=== PATIENT | female | born 1975 | race Caucasian/White ===

== ENCOUNTER 2016-11-17 18:59 | Emergency (ER) | payer MEDICAID ==
[~2016-11-17] VITALS: Ht 152.4 cm; Wt 65.8 kg
[~2016-11-17 18:59] MED LIST: ACET-915 PO
[2016-11-17] MEDS ORDERED: KETOROLAC 30 MG INJ IM STA (19:01)
[2016-11-17 19:15] VITALS: Ht 152.4 cm; Wt 65.8 kg
[2016-11-17] MEDS ORDERED: DIAZEPAM 5 MG/ML SYG IM ONE (19:30)
--- NOTE | 2016-11-17 19:54 | RADRPT ---
PROCEDURE: XR Chest. CLINICAL INDICATION: Chest pain TECHNIQUE: Chest AP portable. COMPARISON: No comparison available. FINDINGS: The mediastinal structures are unremarkable. The heart is normal in size and configuration. The pu lmonary vascularity is normal. The lung burns are unremarkable. No consolidation is identified. The pleural spaces are unremarkable. The axial skeleton is unremarkable. IMPRESSION: No active intrathoracic disease. RPTAT: [facility] .Jonathan Velasco MD, MD Date Time Electronically viewed and signed by .Jonathan Velasco MD, MD on 11/17/2016 19:53 .B/
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
[2016-11-17] MEDS ORDERED: HYDROCODONE/APAP (5/325) TAB PO ONE (20:30)
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
[2016-11-17] MEDS ORDERED: IBUP800T25 PO (20:31)
[2016-11-17] MEDS ORDERED: HYDR-906 PO (20:31)
[2016-11-17 20:47] VITALS: BP 107/70; PULSE 80; RESP 18
== END 2016-11-17 20:47 | disposition home or self-care (01) ==
LOC: E/R 18:59
DX: S16.1XXA Strain of muscle, fascia and tendon at neck level, initial encounter (principal); R07.9 Chest pain, unspecified; R40.2142 Coma scale, eyes open, spontaneous, at arrival to emergency department; R40.2362 Coma scale, best motor response, obeys commands, at arrival to emergency department; R40.2252 Coma scale, best verbal response, oriented, at arrival to emergency department; V49.49XA Driver injured in collision with other motor vehicles in traffic accident, initial encounter
CPT/HCPCS: 71010; 72125; 96372; J1885; J3360; Z7502; Z7610